=== PATIENT | female | born 1990 | race Caucasian/White ===

== ENCOUNTER 2016-11-19 17:57 | Inpatient (IN) | END 2016-11-23 15:10 | disposition home or self-care (01) | DRG 766 | DX: O34.211 Maternal care for low transverse scar from previous cesarean delivery (principal); Z37.0 Single live birth; Z3A.39 39 weeks gestation of pregnancy ==

== ENCOUNTER 2017-04-11 20:37 | Inpatient (IN) | END 2017-04-14 13:21 | disposition home or self-care (01) | DRG 777 ==

== ENCOUNTER 2017-09-22 03:19 | Emergency (ER) | END 2017-09-22 05:21 | disposition home or self-care (01) ==